=== PATIENT | male | born 1995 | race Caucasian/White ===

== ENCOUNTER 2018-07-29 02:17 | Emergency (ER) | payer OTHER ==
[~2018-07-29] VITALS: Ht 167.6 cm; Wt 78.2 kg
[2018-07-29 02:25] VITALS: Ht 167.6 cm; Wt 78.2 kg
[2018-07-29] MEDS ORDERED: KETOROLAC 30 MG INJ IM STA (03:29)
[2018-07-29] MEDS ORDERED: TRAM50TA2 PO (05:09)
[2018-07-29] MEDS ORDERED: IBUP-1542 PO (05:09)
--- NOTE | 2018-07-29 05:13 | ERD ---
ER Documentation Chief Complaint Chief Complaint low back pain x 1 week, also c/o penile pain. hx of kidney stone HPI 22-year-old male presents with left low back pain for the last week. Denies any history of trauma or inciting events. He also has some irritation in the penis or suprapubic area. He has a history of kidney stones with the past. Denies fevers, vomiting, weakness or deficits, testicular swelling. Denies any flank pain. ROS All systems reviewed and are negative except as per history of present illness. Medications Home Meds Active Scripts Tramadol HCl (Tramadol HCl) 50 Mg Tablet, 50 MG PO Q4 PRN for PAIN, #15 TAB Prov:MANAV SOLIS MD 07/29/18 Ibuprofen* (Motrin*) 600 Mg Tab, 600 MG PO Q6, #20 TAB Prov:MANAV SOLIS MD 07/29/18 Allergies Allergies: Coded Allergies: No Known Drug Allergies (Verified Allergy, Unknown, 07/29/18) PMhx/Soc Medical and Surgical Hx: pt denies Surgical Hx Hx Neurological Disorder: No Hx Respiratory Disorders: No Hx Cardiac Disorders: No Hx Psychiatric Problems: No Hx Miscellaneous Medical Probl: Yes (CHRONIC LOW BACK PAIN) Hx Alcohol Use: No Hx Substance Use: No Hx Tobacco Use: Yes Smoking Status: Current every day smoker FmHx Family History: No diabetes, No coronary disease, No other Physical Exam Vitals Vital Signs Date Temp Pulse Resp B/P (MAP) Pulse Ox O2 O2 Flow FiO2 Time Delivery Rate 07/29/18 98.2 85 18 97 02:25 Physical Exam Const: No acute distress Head: Atraumatic Eyes: Normal Conjunctiva ENT: Normal External Ears, Nose and Mouth. Neck: Full range of motion. No meningismus. Resp: Clear to auscultation bilaterally Cardio: Regular rate and rhythm, no murmurs Abd: Soft, non tender, non distended. Normal bowel sounds genital exam shows testicles nontender normal size bilaterally. No penile discharge no hernia. Minimal irritation or tenderness at the suprapubic area. No rebound. Skin: No petechiae or rashes Back: No midline or flank tenderness. Tenderness primarily left L4-5 paraspinous area. No CVA tenderness. No deficits or weakness. Ext: No cyanosis, or edema Neur: Awake and alert Psych: Normal Mood and Affect Results 24 hrs Laboratory Tests Test 07/29/18 03:37 Urine Color YELLOW Urine Clarity SLIGHTLY CLOUDY Urine pH 5.0 Urine Specific [place] 1.028 Urine Ketones TRACE mg/dL Urine Nitrite NEGATIVE mg/dL Urine Bilirubin NEGATIVE mg/dL Urine Urobilinogen 1+ mg/dL Urine Leukocyte Esterase NEGATIVE Zohreh/ul Urine Microscopic RBC 0 /HPF Urine Microscopic WBC 1 /HPF Urine Mucus MANY /HPF Urine Hemoglobin NEGATIVE mg/dL Urine Glucose NEGATIVE mg/dL Urine Total Protein NEGATIVE mg/dl Current Medications Medications Dose Sig/Genia Start Time Status Last (Trade) Ordered Route PRN Stop Time Admin Dose Reason Admin Ketorolac 30 mg ONCE STAT 07/29/18 DC 07/29/18 Tromethamine IM 03:29 07/29/18 03:49 (Toradol) 03:30 Procedures/MDM Shows no signs of infection or significant acute abnormalities. Renal ultrasound shows possible small distended stone in the inferior pole but no hydronephrosis or additional acute abnormalities. Patient was given Toradol 30 mg IM. Patient resents with left low back pain. He likely has muscle skeletal back pain. His genitourinary symptoms of uncertain etiology. Patient denies any potential STDs as he has not had intercourse in some time. Current signs or symptoms do not suggest appendicitis, acute abdomen, obstruction. He will be discharged home with ibuprofen, further observation at home, primary care follow-up and return precautions. The patient was stable with no new complaints during the ER course. Clinically, there is no current evidence to suggest meningitis, sepsis, acute abdomen, pneumonia, stroke, acute coronary syndrome, pulmonary embolism, aortic dissection or any other emergent condition appearing to require further evaluation or hospitalization. Patient counseled regarding my diagnostic impression and care plan. Prior to discharge all questions ans wered. Pt agrees with treatment plan and understands strict return precautions. Pt is instructed to follow up with primary care provider within 24-48 hours. Precautionary instructions provided including instructions to return to the ER if not improving or for any worsening or changing symptoms or concerns. Disclaimer: Inadvertent spelling and grammatical errors are likely due to E HR/dictation software use and do not reflect on the overall quality of patient care. Also, please note that the electronic time recorded on this note does not necessarily reflect the actual time of the patient encounter. Departure Diagnosis: Primary Impression: Back pain Back pain location: low back pain Chronicity: acute Back pain laterality: left Sciatica presence: without sciatica Qualified Codes: M54.5 - Low back pain Condition: Stable Patient Instructions: Back Pain (Acute Or Chronic) Referrals: NO PRIMARY,CARE PHYSICIAN (PCP) Additional Instructions: Urine normal. Ultrasound shows no obstruction. There may be a small undescended stone which may cause symptoms later. Likely musculoskeletal back pain. Recheck for fevers, vomiting, new worsening symptoms with primary care doctor. MANAV SOLIS MD Jul 29, 2018 05:13
[2018-07-29 05:33] VITALS: BP 109/62; PULSE 73; RESP 17
== END 2018-07-29 05:36 | disposition home or self-care (01) ==
LOC: FTE 02:17
DX: M54.5 Low back pain (principal); F17.210 Nicotine dependence, cigarettes, uncomplicated
CPT/HCPCS: 76775; 81001; 96372; 99285; J1885; 81003